=== PATIENT | female | born 1960 | race African-American/Black ===

== ENCOUNTER 2025-04-02 15:21 | Inpatient (IN) ==
[2025-04-02] MEDS: IPRATROPIUM/ALBUTEROL SULFATE 3 ML AMPUL.NEB INH ONE (15:30)
[2025-04-02] MEDS ORDERED: ACETAMINOPHEN 1000 MG/100 ML 1,000 MG/100 ML IV.SOLN IV ONE (15:42)
[2025-04-02] MEDS: ACETAMINOPHEN 1000 MG/100 ML 1,000 MG/100 ML IV.SOLN IV ONE (15:44)
[2025-04-02] MEDS ORDERED: 0.9 % SODIUM CHLORIDE 250 ML IV ONE (15:48)
[2025-04-02] MEDS ORDERED: AZITHROMYCIN 500 MG VIAL ONE (15:48)
[2025-04-02] MEDS: AZITHROMYCIN 500 MG 500 MG in 0.9 % SODIUM CHLORIDE 250 ML IV ONE (15:59)
[2025-04-02 16:00] LABS: Basophils #(Absolute) Auto 0.1 (0.0-0.1); Basophils%(Percent) Auto 0.3 (0.1-0.85); Eosinophils%(Percent) Auto 0.1 % (0.4-2.8); Granulocytes % - Auto 89.3 % (47.8-71.3); Granulocytes#(Absolute)- Auto 16.7 (2.3-6.0); Hematocrit 54.4 % (35.9-46.7); Mean Corpuscular Volume 94.2 fl (81.0-93.7); Monocytes #(Absolute)- Auto 1.6 (1.1-3.1); Monocytes %(Percent)- Auto 8.4 % (3.6-9.8); Platelet Count 187 K/uL (152-353); White Blood Count 18.7 K/uL (4.3-9.3)
[2025-04-02 16:05] LABS: Potassium 3.3 mmol/L (3.6-5.2)
[2025-04-02] MEDS: 0.9 % SODIUM CHLORIDE 1000 ML 1,000 ML IV ONE (16:54)
[2025-04-02 16:55] LABS: Urine Appearance CLEAR (CLEAR); Urine Blood NEGATIVE (NEG - TRACE); Urine Color YELLOW (STRAW/YELL.); Urine Urobilinogen Normal (NORMAL)
[2025-04-02 17:01] LABS: Amphetamine Screen Urine NEG. (NEGATIVE); Cannabinoid Screen Urine POS. (NEGATIVE); Cocaine Screen Urine POS. (NEGATIVE); Methadone Screen Urine NEG. (NEGATIVE); Opiate Screen Urine NEG. (NEGATIVE)
[2025-04-02] MEDS ORDERED: DOCUSATE SODIUM 100 MG CAPSULE PO PRN (17:23)
[2025-04-02] MEDS: METHYLPREDNISOLONE SOD SUCC/PF 40 MG/ML VIAL INJ SCH (19:34)
[2025-04-02] MEDS: 0.9 % SODIUM CHLORIDE 1000 ML 1,000 ML IV SCH (19:34)
[2025-04-02] MEDS: IPRATROPIUM/ALBUTEROL SULFATE 3 ML AMPUL.NEB INH SCH (20:27)
[2025-04-02] MEDS: BUDESONIDE INH SCH (22:46)
[2025-04-02] MEDS: FORMOTEROL FUMARATE INH SCH (22:46)
[2025-04-03 05:19] LABS: Granulocytes % - Auto 90.1 % (47.8-71.3); Granulocytes#(Absolute)- Auto 24.2 (2.3-6.0); Hematocrit 50.8 % (35.9-46.7); Mean Corpuscular Volume 95.6 fl (81.0-93.7); Monocytes %(Percent)- Auto 7.6 % (3.6-9.8); Platelet Count 175 K/uL (152-353)
[2025-04-03 05:54] LABS: Potassium 3.2 mmol/L (3.6-5.2)
[2025-04-03 06:00] LABS: White Blood Count 26.8 K/uL (4.3-9.3)
[2025-04-03] MEDS: POTASSIUM CHLORIDE IN WATER 10 MEQ/100 ML PIGGYBACK IV ONE (09:39)
[2025-04-03] MEDS: POTASSIUM CHLORIDE 20 MEQ TAB.ER.PRT PO ONE (09:39)
[2025-04-03] MEDS: MAGNESIUM OXIDE 400 MG TABLET PO ONE (09:39)
[2025-04-03] MEDS: PANTOPRAZOLE 20 MG PO SCH (09:40)
[2025-04-03] MEDS: POTASSIUM PHOS M BASIC D BASIC IV ONE (09:40)
[2025-04-03] MEDS: ENOXAPARIN SODIUM 40 MG/0.4 ML SYRINGE SUBQ SCH (09:40)
[2025-04-03] MEDS: SODIUM CHLORIDE 0.9% IV ONE (09:40)
--- NOTE | 2025-04-03 12:50 | History & Physical Report ---
H&P: HPI History of Present Illness Chief complaint: SOB Narrative: A 64-year-old female came into the ER last p.m. complaining of increasing shortness of breath over the last several days. States she was recently diagnosed with stage IV lung cancer and has a follow-up appointment with [facility] oncology in [address] Laird for final diagnosis if that biopsy and treatment options available for the patient. Patient is normally on 3 L nasal cannula at home secondary to long history of asthma and COPD. Patient denies any drug use upon hard questioning she admits to marijuana secondary to increased pain and troubles with her cancer and her friend told her it would help. Patient has a longstanding positive urine is from cocaine although she continues to deny this use. Patient has a long history of medical noncompliance and refuses stop smoking and even does not want stop at this time because she feels like it is too late at this point to stop. Patient denies any changes in her bowels no nausea no vomiting does have a very poor appetite and has subjective fevers although no has been measured. Review of Systems Status of ROS 10 or more systems reviewed and unremark able except as noted in history and below Constitutional Reports: fever, chills, change in weight (loosing weight), fatigue, malaise and night sweats; Denies: change in sleep pattern Eyes Denies: change in vision, blurry vision, blind spots or light sensitivity Ears, nose, mouth, and throat Reports: dry mouth; Denies: throat pain, neck pain, throat swelling, difficulty swallowing, hoarseness, mouth pain or swelling of lips/tongue Cardiovascular Reports: lightheadedness and shortness of breath with exertion; Denies: chest pain, palpitations, edema or swelling of feet/ankles Respiratory Reports: shortness of breath, cough, wheezing and change in phlegm color; Denies: stridor, pain on inspiration, coughing up blood or chest congestion Gastrointestinal Reports: nausea; Denies: abdominal pain, vomiting, coffee grounds in vomit, heartburn, diarrhea, constipation, bloating, belching, excessive passing of gas, difficulty swallowing, feeling full early, change in bowel habits or painful bowel movements Genitourinary Reports: urinary incontinence; Denies: painful urination, urinary frequency, urinary urgency, blood in urine, painful menstruation or vaginal bleeding Musculoskeletal Reports: joint pain; Denies: back pain, neck pain, extremity pain, extremity swelling or limited range of motion Integumentary/Breast Denies: rash, itching, redness, skin pain, skin tenderness, skin swelling, sores, new lesion or changing lesion Neurological Reports: numbness in extremities and difficulty communicating thoughts; Denies: headache, weakness in extremities, lack of coordination, dizziness, vertigo, confusion, behavioral changes or slurred speech Psychiatric Reports: anxiety, hopelessness, irritability and difficulty concentrating; Denies: mood swings, panic attacks, change in sleep pattern, loss of interest, paranoia, memory loss, visual hallucinations, auditory hallucinations, tactile hallucinations, suicidal ideation or homicidal ideation Endocrine Reports: fatigue; Denies: excessive urination, excessive thirst, cold intolerance, excessive sweating, flushing or heat intolerance Hematologic/Lymphatic Denies: easy bruising, easy bleeding or enlarged lymph nodes Allergic/Immunologic Reports: wheezing; Denies: hives, throat swelling, tongue swelling, facial swelling, itchy eyes or seasonal allergies [facility] Medical History (Updated 04/03/25 @ 13:07 by Sherine Mary DO) Acute on chronic respiratory failure with hypoxia and hypercapnia COPD exacerbation Stage 4 malignant neoplasm of lung On home oxygen therapy Lung cancer Asthma COPD (chronic obstructive pulmonary disease) Social History Smoking status: current every day smoker What tobacco products do you use: cigarettes Packs per day: 0.5 Non-prescribed substance use: crack/cocaine Non-prescribed substance use details: last smoked Sunday Problems where you live: no known problems Highest level of school completed/degree received: high school Little interest or pleasure in doing things: not at all Feeling down, depressed, or hopeless: not at all Feel stressed/tense/nervous/anxious/difficulty sleeping: only a little Gender Identity: female Meds Home Medications and Allergies Home Medications Medication Instructions Recorded Confirmed Type albuterol sulfate 2.5 mg/3 mL 2.5 mg (3 mL) inhalation Q4H COPD 05/18/24 04/03/25 Rx (0.083 %) solution for nebulization 30 days #150 mL albuterol sulfate 90 mcg/actuation 1 puff inhalation Q 4H PRN 05/18/24 04/03/25 Rx aerosol inhaler shortness of breath or wheez ing 30 days #2 grams benzonatate 100 mg capsule 200 mg (2 x 100 mg) PO Q8H COUGH 5 05/18/24 04/03/25 Rx Held on 04/03/25. 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 30 days 05/18/24 04/03/25 Rx mcg-4.5 mcg/actuation aerosol #1 g inhaler (Symbicort) pantoprazole 20 mg tablet,delayed 20 mg PO DAILY GERD 30 days #30 05/18/24 04/03/25 Rx release tabs Allergies Allergy/AdvReac Type Severity Reaction Status Date / Time Penicillins Allergy Intermediate Verified 04/02/25 16:12 CRAB Allergy Uncoded 04/02/25 16:12 OYSTERS Allergy Uncoded 04/02/25 16:12 SODA Allergy Uncoded 04/02/25 16:12 Exam Constitutional: abnormal general appearance (disheveled), (chronically ill) and (frail appearing), no apparent distress, abnormal body habitus (cachectic), (thin) and (underweight), no limitations and alert Vital Signs - 24 hr 04/02/25 15:21 04/02/25 15:48 04/02/25 16:00 Temperature 103.0 F H Pulse Rate 121 H 121 H Pulse Rate [Bilate ral] Respiratory Rate 27 H 25 H Blood Pressure 138/79 131/81 Blood Pressure [Ri ght Arm] Pulse Oximetry 88 L 91 L 96 Oxygen Delivery Me thod Nasal Cannula Nasal Cannula Oxygen Flow Rate 3 4 Fraction of Inspir ed Oxygen 04/02/25 16:30 04/02/25 17:00 04/02/25 17:19 Temperature Pulse Rate 119 H 114 H Pulse Rate [Bilate ral] Respiratory Rate 22 29 H Blood Pressure 110/71 110/77 Blood Pressure [Ri ght Arm] Pulse Oximetry 91 L 90 L Oxygen Delivery Me thod Nasal Cannula Nasal Cannula Nasal Cannula Oxygen Flow Rate 3 3 3 Fraction of Inspir ed Oxygen 04/02/25 17:30 04/02/25 17:44 04/02/25 18:00 Temperature 99.5 F Pulse Rate 112 H 111 H 110 H Pulse Rate [Bilate ral] Respiratory Rate 25 H 25 H 32 H Blood Pressure 126/73 115/73 128/81 Blood Pressure [Ri ght Arm] Pulse Oximetry 93 L 93 L 95 Oxygen Delivery Me thod Nasal Cannula Nasal Cannula Nasal Cannula Oxygen Flow Rate 3 3 3 Fraction of Inspir ed Oxygen 04/02/25 18:30 04/02/25 19:05 04/02/25 19:45 Temperature 99.3 F 98.5 F Pulse Rate 109 H 109 H Pulse Rate [Bilate ral] 107 H Respiratory Rate 21 20 21 Blood Pressure 124/72 126/80 Blood Pressure [Ri ght Arm] 119/73 Pulse Oximetry 88 L 91 L 92 L Oxygen Delivery Me thod Nasal Cannula Nasal Cannula Oxygen Flow Rate 3 Fraction of Inspir ed Oxygen 04/02/25 20:28 04/02/25 20:28 04/02/25 23:29 Temperature 98.5 F Pulse Rate Pulse Rate [Bilate ral] 86 Respiratory Rate 23 Blood Pressure Blood Pressure [Ri ght Arm] 110/72 Pulse Oximetry 94 L 95 92 L Oxygen Delivery Me thod Nasal Cannula Nasal Cannula Oxygen Flow Rate 3 Fraction of Inspir ed Oxygen 04/03/25 03:47 04/03/25 07:47 04/03/25 07:51 Temperature 97.8 F 98.3 F Pulse Rate Pulse Rate [Bilate ral] 99 H 85 Respiratory Rate 20 20 Blood Pressure Blood Pressure [Ri ght Arm] 134/89 124/71 Pulse Oximetry 94 L 90 L 92 L Oxygen Delivery Me thod Nasal Cannula Nasal Cannula Oxygen Flow Rate 3 Fraction of Inspir ed Oxygen 04/03/25 07:52 04/03/25 11:48 04/03/25 12:02 Temperature 98.1 F Pulse Rate Pulse Rate [Bilate ral] 98 H Respiratory Rate 19 Blood Pressure Blood Pressure [Ri ght Arm] 120/68 Pulse Oximetry 92 L 91 L 94 L Oxygen Delivery Me thod Nasal Cannula Nasal Cannula Oxygen Flow Rate 3 3 Fraction of Inspir ed Oxygen 32 HENMT: normocephalic, head/scalp atraumatic, hearing grossly abnormal, external ears normal, EACs normal, TMs abnormal, nasal mucous membranes normal, external nose normal, oral mucous membranes abnormal, oropharynx normal, dentition abnormal and gingiva normal Eyes: PERRL, EOMs intact bilaterally, conjunctivae normal, no scleral icterus, papilledema noted, normal visual blackburn by confrontation, alignment normal, periorbital findings normal and no nystagmus Neck/C-Spine: trachea midline, cervical spine nontender, abnormal cervical ROM noted, supple, no meningeal signs, thyroid normal and no carotid bruits Lymph: no lymphadenopathy noted and no lymphedema noted Chest: inspection of chest normal, palpation of chest normal, inspection of breast(s) abnormal and palpation of breast(s) abnormal Respiratory: breath sounds unequal (rhonchi noted bilaterally in all blackburn), abnormal respiratory effort (labored), auscultation abnormal (bronchial breath sounds), wheezing noted (scattered wheezes), no rales, retractions noted and no use of accessory muscles Cardiovascular: normal heart rate noted, regular rhythm noted, no gallop, no rub, no murmur, no JVD, no clicks, peripheral pulses 2+ throughout, no bruits noted and no additional abnormal heart sounds Gastrointestinal: abdomen normal to inspection, abdomen soft to palpation, nontender to palpation, nontender to percussion, nondistended, normoactive bowel sounds, hepatosplenomegaly noted, no masses, no pulsatile mass, no ascites and no hernia Genitourinary: no CVA tenderness and bladder normal to palpation Back/Pelvis: spine normal to inspection, no thoracic spine tenderness, no lumbar spine tenderness, thoracic spine ROM normal, lumbar spine ROM normal, no paraspinal muscle tenderness noted and straight leg raise negative bilaterally Extremities: normal to palpation, no tenderness, full ROM, no joint enlargement and deformity noted 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, no movement abnormality noted, no focal motor deficit noted, sensory deficit noted, deep tendon reflexes 2+ bilaterally, gait abnormality noted, speech normal, coordination normal, no pronator drift noted, no fasciculations noted and GCS normal Psychiatry: Mental Status Exam documented within this Exam's Psych section mental status grossly normal, oriented x3, thought process normal, cooperative, affect normal, psychomotor activity normal and memory normal Feel stressed/tense/nervous/anxious/difficulty sleeping: very much Life stressors: other Life stressor details: health Skin: skin color abnormal Reports (pale), no rash, no lesions, no ecchymosis noted, no wounds, no lacerations, skin turgor abnormal, no jaundice, no petechiae, no mottling, nails abnormality noted and no alopecia Assessment and Plan Assessment and Plan (1) Pneumonia of both lower lobes: Qualifiers: Pneumonia type: due to unspecified organism Qualified Code(s): J18.9 - Pneumonia, unspecified organism Code(s): J18.9 - Pneumonia, unspecified organism (2) COPD exacerbation: Code(s): J44.1 - Chronic obstructive pulmonary disease with (acute) exacerbation (3) Stage 4 malignant neoplasm of lung: Qualifiers: Laterality: unspecified laterality Qualified Code(s): C34.90 - Malignant neoplasm of unspecified part of unspecified bronchus or lung Code(s): C34.90 - Malignant neoplasm of unspecified part of unspecified bronchus or lung (4) Cocaine use: Code(s): F14.90 - Cocaine use, unspecified, uncomplicated (5) Tobacco dependence with current use: Code(s): F17.200 - Nicotine dependence, unspecified, uncomplicated (6) GERD without esophagitis: Code(s): K21.9 - Gastro-esophageal reflux disease without esophagitis (7) Acute on chronic respiratory failure with hypoxia and hypercapnia: Code(s): J96.21 - Acute and chronic respiratory failure with hypoxia; J96.22 - Acute and chronic respiratory failure with hypercapnia Plan Replace potassium orally and IV Cardiac monitoring continuous Continuous oximetry EKG in the a.m. Repeat ABG as needed Zithromax 500 mg IV daily started in the ER Rocephin 1 g IV daily started in the ER Solu-Medrol dose given in the ER CBC jumped up to 26 thousand so we will add Zosyn 3.375 mg IV every 6 hours Phosphorus 3.4 mmol startedMg ox patient milligrams. Given Will give albumin IV x 2 DuoNeb every 6 hours Acapella per protocol Pulmicort every 12 hours Will try an oral form using centimeter at this time to see how the WBCs respond and patient's breathing improves with current methods Results Labs Labs: CBC 04/02/25 04/03/25 Range/Units 15:45 05:10 WBC 18.7 H 26.8 H* D (4.3-9.3) K/uL RBC 5.8 H 5.3 (4.00-5.50) M/uL Hgb 17.3 H 16.1 H (12.5-15.8) gm/dL Hct 54.4 H 50.8 H (35.9-46.7) % Plt Count 187 175 (152-353) K/uL Gran % 89.3 H 90.1 H (47.8-71.3) % Lymph % (Auto) 1.9 L 2.3 L (20.0-43.0) % [place] % (Auto) 8.4 7.6 (3.6-9.8) % Eos % (Auto) 0.1 L 0.0 L (0.4-2.8) % Baso % (Auto) 0.3 0.0 L (0.1-0.85) Lymph # (Auto) 0.3 L 0.6 L (1.1-3.1) [place] # (Auto) 1.6 2.0 (1.1-3.1) Eos # (Auto) 0.0 0.0 (0.0-0.2) Baso # (Auto) 0.1 0.0 (0.0-0.1) Absolute Gran (auto) 16.7 H 24.2 H (2.3-6.0) CMP 04/02/25 04/03/25 15:45 05:10 Sodium 141 141 Potassium 3.3 L 3.2 L Chloride 100.0 105.0 Carbon Dioxide 39 H 36 H BUN 12 14 Creatinine 0.7 0.6 Glucose 104 147 H Calcium 9.0 8.7 Liver Function 04/02/25 04/03/25 Range/Units 15:45 05:10 Total Bilirubin 0.67 0.39 (0.0-1.0) mg/dL AST 19 19 (15-37) U/L ALT 22 L 15 L (30-65) U/L Alkaline Phosphatase 75 57 (50-136) U/L Albumin 3.0 L 2.1 L (3.4-5.0) g/dL Urine 04/02/25 15:40 Urine Color Yellow Urine Appearance Clear Ur Specific [place] 1.010 Urine Protein Negative Urine Glucose (UA) Normal ABG ABG results: 7.31/82/30/126/41.3/ awaiting repeat now Attestation: I have reviewed the pertinent ABG results. Pulse Oximetry Attestation: I have reviewed the pertinent pulse oximetry results. ECG Attestation: I have reviewed the pertinent ECG results. Prior ECG tracings: available for review Imaging Imaging ordered: Chest x-ray Radiologist's impression: XR CHEST 1V HISTORY: SOB/FeverSOB/Fever; CV COMPARISON: January 08 TECHNIQUE: Chest radiograph AP single-view FINDINGS: Patchy infiltrates and coarsened interstitial lung markings are demonstrated within the bilateral mid to lower lung zones in keeping with pneumonia. This is superimposed on chronic pulmonary hyperinflation. The heart size is normal. No conspicuous pleural fluid collections identified. There is no pneumothorax or free air beneath the diaphragm. IMPRESSION: Multifocal bilateral pulmonary opacities/infiltrates in keeping with pneumonia. This may be associated with nonspecific viral and atypical organisms Radiographic features of emphysematous COPD are superimposed upon the above findings.
[2025-04-03] MEDS: MAGNESIUM OXIDE 400 MG TABLET ONE (12:57)
[2025-04-03] MEDS: POTASSIUM CHLORIDE 20 MEQ TAB.ER.PRT ONE (12:57)
[2025-04-03] MEDS: 0.9 % SODIUM CHLORIDE 1000 ML 1,000 ML IV SCH (14:02)
[2025-04-03] MEDS: ALBUMIN HUMAN 25% 100 ML IV SCH (14:03)
[2025-04-03] MEDS: PIPERACILLIN/TAZOBACTAM 3.375 3.375 GM in 0.9 % SODIUM CHLORIDE MB+ 100 ML IV SCH (14:03)
[2025-04-03] MEDS: PANTOPRAZOLE SODIUM 40 MG TABLET.DR PO SCH (14:03)
[2025-04-03 14:31] LABS: PCO2 ABG 59 mmHg (35-45)
[2025-04-03 14:32] LABS: Base Excess ABG 7.1 mmo1/L (-2-2); Oxygen Saturation ABG 38 % (92-100); PO2 ABG 23 mmHg (60-100)
[2025-04-03 14:33] LABS: pH ABG 7.37 (7.35-7.45)
[2025-04-03] MEDS: BUDESONIDE 0.5 MG/2 ML AMPUL.NEB INH SCH (14:51)
[2025-04-03] MEDS: AZITHROMYCIN 500 MG 500 MG in 0.9 % SODIUM CHLORIDE 250 ML IV SCH (16:01)
[2025-04-03] MEDS: ONDANSETRON HCL/PF 4 MG/2 ML VIAL INJ PRN (19:34)
[2025-04-03] MEDS: ACETAMINOPHEN 325 MG TABLET PO PRN (19:35)
[2025-04-04 05:08] LABS: Basophils%(Percent) Auto 0.1 (0.1-0.85); Eosinophils%(Percent) Auto 0.1 % (0.4-2.8); Granulocytes % - Auto 85.8 % (47.8-71.3); Granulocytes#(Absolute)- Auto 14.5 (2.3-6.0); Hematocrit 47.1 % (35.9-46.7); Mean Corpuscular Volume 95.5 fl (81.0-93.7); Monocytes #(Absolute)- Auto 1.4 (1.1-3.1); Monocytes %(Percent)- Auto 8.5 % (3.6-9.8); Platelet Count 158 K/uL (152-353)
[2025-04-04 05:29] LABS: Potassium 3.5 mmol/L (3.6-5.2)
--- NOTE | 2025-04-04 17:11 | Progress Note ---
Progress Note: Subjective Subjective Interval history: Patient still very tight and short of breath has had 2 loose stools today. Denies any abdominal pain and no nausea nor vomiting and otherwise she has tolerated the antibioitcs and steroids. no fevers Exam Constitutional: abnormal general appearance (disheveled), (chronically ill) and (frail appearing), distress noted (moderate) and (respiratory), abnormal body habitus (cachectic), (thin) and (underweight), no limitations and alert Vital Signs - 24 hr 04/03/25 19:27 04/03/25 19:44 04/03/25 19:51 Temperature 98.0 F Pulse Rate [Bilate ral] 98 H 98 H Respiratory Rate 20 Blood Pressure [Ri ght Arm] 107/68 Pulse Oximetry 93 L 93 L Oxygen Delivery Me thod Nasal Cannula Oxygen Flow Rate 3 Fraction of Inspir ed Oxygen 04/03/25 19:51 04/03/25 23:25 04/04/25 04:00 Temperature 97.9 F 98.1 F Pulse Rate [Bilate ral] 96 H 96 H Respiratory Rate 18 18 Blood Pressure [Ri ght Arm] 103/66 107/68 Pulse Oximetry 93 L 94 L 96 Oxygen Delivery Me thod Nasal Cannula Nasal Cannula Nasal Cannula Oxygen Flow Rate 3 3 3 Fraction of Inspir ed Oxygen 32 04/04/25 07:39 04/04/25 08:17 04/04/25 11:32 Temperature 97.9 F Pulse Rate [Bilate ral] 85 Respiratory Rate 19 Blood Pressure [Ri ght Arm] 106/48 Pulse Oximetry 90 L 90 L 94 L Oxygen Delivery Me thod Nasal Cannula Oxygen Flow Rate 3 Fraction of Inspir ed Oxygen 04/04/25 12:00 04/04/25 15:26 04/04/25 16:00 Temperature 97.8 F 97.8 F Pulse Rate [Bilate ral] 94 H 103 H Respiratory Rate 20 19 Blood Pressure [Ri ght Arm] 113/73 103/66 Pulse Oximetry 91 L 92 L 90 L Oxygen Delivery Me thod Nasal Cannula Nasal Cannula Oxygen Flow Rate 3 3 Fraction of Inspir ed Oxygen HENMT: normocephalic, head/scalp atraumatic, hearing grossly abnormal, external ears normal, EACs normal, TMs abnormal, nasal mucous membranes normal, external nose normal, oral mucous membranes abnormal, oropharynx normal, dentition abnormal and gingiva normal Eyes: PERRL, EOMs intact bilaterally, conjunctivae normal, no scleral icterus, papilledema noted, normal visual blackburn by confrontation, alignment normal, periorbital findings normal and no nystagmus Neck/C-Spine: trachea midline, cervical spine nontender, abnormal cervical ROM noted, supple, no meningeal signs, thyroid normal and no carotid bruits Lymph: no lymphadenopathy noted and no lymphedema noted Chest: inspection of chest normal, palpation of chest normal, inspection of breast(s) abnormal and palpation of breast(s) abnormal Respiratory: breath sounds equal bilaterally (rhonchi noted bilaterally in all blackburn), normal respiratory effort, clear to auscultation bilaterally, no wheezes, no rales, no retractions and no use of accessory muscles Cardiovascular: normal heart rate noted, regular rhythm noted, no gallop, no rub, no murmur, no JVD, no clicks, peripheral pulses 2+ throughout, no bruits noted and no additional abnormal heart sounds Gastrointestinal: abdomen normal to inspection, abdomen soft to palpation, nontender to palpation, nontender to percussion, nondistended, normoactive bowel sounds, hepatosplenomegaly noted, no masses, no pulsatile mass, no ascites and no hernia Genitourinary: no CVA tenderness and bladder normal to palpation Back/Pelvis: spine normal to inspection, no thoracic spine tenderness, no lumbar spine tenderness, thoracic spine ROM normal, lumbar spine ROM normal, no paraspinal muscle tenderness noted and straight leg raise negative bilaterally Extremities: normal to palpation, no tenderness, full ROM, no joint enlargement and deformity noted 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, no movement abnormality noted, no focal motor deficit noted, sensory deficit noted, deep tendon reflexes 2+ bilaterally, gait abnormality noted, speech normal, coordination normal, no pronator drift noted, no fasciculations noted and GCS normal Psychiatry: Mental Status Exam documented within this Exam's Psych section mental status grossly normal, oriented x3, thought process normal, cooperative, affect normal, psychomotor activity normal and memory normal Feel stressed/tense/nervous/anxious/difficulty sleeping: very much Life stressors: other Life stressor details: health Skin: skin color abnormal Reports (pale), no rash, no lesions, no ecchymosis noted, no wounds, no lacerations, skin turgor abnormal, no jaundice, no petechiae, no mottling, nails abnormality noted and no alopecia Progress Note: Objective Labs Labs: CBC 04/04/25 Range/Units 05:00 WBC 17.0 H D (4.3-9.3) K/uL RBC 4.9 (4.00-5.50) M/uL Hgb 14.8 (12.5-15.8) gm/dL Hct 47.1 H (35.9-46.7) % Plt Count 158 (152-353) K/uL Gran % 85.8 H (47.8-71.3) % Lymph % (Auto) 5.5 L (20.0-43.0) % [place] % (Auto) 8.5 (3.6-9.8) % Eos % (Auto) 0.1 L (0.4-2.8) % Baso % (Auto) 0.1 (0.1-0.85) Lymph # (Auto) 0.9 L (1.1-3.1) [place] # (Auto) 1.4 (1.1-3.1) Eos # (Auto) 0.0 (0.0-0.2) Baso # (Auto) 0.0 (0.0-0.1) Absolute Gran (auto) 14.5 H (2.3-6.0) CMP 04/04/25 05:00 Sodium 144 Potassium 3.5 L Chloride 109.0 H Carbon Dioxide 35 H BUN 14 Creatinine 0.6 Glucose 93 Calcium 8.7 Liver Function 04/04/25 Range/Units 05:00 Total Bilirubin 0.41 (0.0-1.0) mg/dL AST 12 L (15-37) U/L ALT 16 L (30-65) U/L Alkaline Phosphatase 50 (50-136) U/L Albumin 2.8 L (3.4-5.0) g/dL Urine 04/02/25 15:40 Urine Color Yellow Urine Appearance Clear Ur Specific [place] 1.010 Urine Protein Negative Urine Glucose (UA) Normal Progress Note: A&P Assessment and Plan (1) Pneumonia of both lower lobes: Qualifiers: Pneumonia type: due to unspecified organism Qualified Code(s): J18.9 - Pneumonia, unspecified organism (2) COPD exacerbation: (3) Stage 4 malignant neoplasm of lung: Qualifiers: Laterality: unspecified laterality Qualified Code(s): C34.90 - Malignant neoplasm of unspecified part of unspecified bronchus or lung (4) Cocaine use: (5) Tobacco dependence with current use: (6) GERD without esophagitis: (7) Acute on chronic respiratory failure with hypoxia and hypercapnia: Plan Replace potassium orally and IV Cardiac monitoring continuous Continuous oximetry EKG in the a.m. Repeat ABG as needed Zithromax 500 mg IV daily started in the ER Rocephin 1 g IV daily started in the ER Solu-Medrol dose given in the ER CBC jumped up to 26 thousand so we will add Zosyn 3.375 mg IV every 6 hours Phosphorus 3.4 mmol startedMg ox patient milligrams. Given Will give albumin IV x 2 DuoNeb every 6 hours Acapella per protocol Pulmicort every 12 hours Will try an oral form using centimeter at this time to see how the WBCs respond and patient's breathing improves with current methods Fall Risk Details Vee Fall Scale Risk Level: Moderate Fall Risk Current Medications: Current Medications Acetaminophen (Acetaminophen 325 Mg Tablet) 650 mg PO Q6H PRN PRN Reason: Fever OF 100.5 OR GREATER Last Admin: 04/03/25 19:35 Dose: 650 mg Albuterol Sulfate (Ipratropium/Albuterol Sulfate 3 Ml Ampul.Neb) 3 ml INH RQID [facility] Last Admin: 04/04/25 15:25 Dose: 3 ml Budesonide (Budesonide 0.5 Mg/2 Ml Ampul.Neb) 0.5 mg INH RBID [facility] Last Admin: 04/04/25 08:15 Dose: 0.5 mg Docusate Sodium (Docusate Sodium 100 Mg Capsule) 100 mg PO DAILY PRN PRN Reason: Constipation Enoxaparin Sodium (Enoxaparin Sodium 40 Mg/0.4 Ml Syringe) 40 mg SUBQ DAILY [facility] Last Admin: 04/04/25 08:20 Dose: 40 mg Sodium Chloride (Sodium Chloride) 1,000 mls @ 75 mls/hr IV CONT [facility] Last Infusion: 04/04/25 08:40 Dose: Infused Azithromycin 500 mg/ Sodium (Chloride) 250 mls @ 250 mls/hr IV Q24H [facility] Stop: 04/05/25 16:59 Last Admin: 04/04/25 16:09 Dose: 250 mls/hr Piperacillin Sod/Tazobactam (Sod 3.375 gm/ Sodium Chloride) 100 mls @ 200 mls/hr IV Q6H [facility] Last Infusion: 04/04/25 14:54 Dose: Infused Sodium Chloride (Sodium Chloride) 1,000 mls @ 100 mls/hr IV CONT [facility] Last Admin: 04/04/25 08:20 Dose: 100 mls/hr Ondansetron HCl (Ondansetron Hcl/Pf 4 Mg/2 Ml Vial) 4 mg INJ Q6H PRN PRN Reason: Nausea And Vomiting Last Admin: 04/03/25 19:34 Dose: 4 mg Pantoprazole Sodium (Pantoprazole Sodium 40 Mg Tablet.Dr) 40 mg PO DAILY [facility] Last Admin: 04/04/25 08:20 Dose: 40 mg Time Spent With Patient Time: Total time spent is greater than 50% in coordination of care (as documented) at patient's floor/unit and/or counseling patient:
[2025-04-04] MEDS: MAGNESIUM OXIDE 400 MG TABLET PO ONE (18:03)
[2025-04-04] MEDS: POTASSIUM CHLORIDE 20 MEQ TAB.ER.PRT PO ONE (18:03)
--- NOTE | 2025-04-05 05:55 | Progress Note ---
Progress Note: Subjective Subjective Interval history: breathing improved and still wearing oxygen and working on weaning the oxygen. Diarrhea persisting per the patient and having issues with brething to make it to the toilet on time. Exam Constitutional: abnormal general appearance (disheveled), (chronically ill) and (frail appearing), no apparent distress, abnormal body habitus (cachectic), (thin) and (underweight), limitations noted (physical limitations) and alert Vital Signs - 24 hr 04/04/25 07:39 04/04/25 08:17 04/04/25 11:32 Temperature 97.9 F Pulse Rate [Bilate ral] 85 Respiratory Rate 19 Blood Pressure [Ri ght Arm] 106/48 Pulse Oximetry 90 L 90 L 94 L Oxygen Delivery Me thod Nasal Cannula Oxygen Flow Rate 3 Fraction of Inspir ed Oxygen 04/04/25 12:00 04/04/25 15:26 04/04/25 16:00 Temperature 97.8 F 97.8 F Pulse Rate [Bilate ral] 94 H 103 H Respiratory Rate 20 19 Blood Pressure [Ri ght Arm] 113/73 103/66 Pulse Oximetry 91 L 92 L 90 L Oxygen Delivery Me thod Nasal Cannula Nasal Cannula Oxygen Flow Rate 3 3 Fraction of Inspir ed Oxygen 04/04/25 19:29 04/04/25 19:34 04/04/25 20:30 Temperature 98.5 F Pulse Rate [Bilate ral] 107 H 107 H Respiratory Rate 19 19 Blood Pressure [Ri ght Arm] 145/87 Pulse Oximetry 95 100 Oxygen Delivery Me thod Room Air Nasal Can nula Oxygen Flow Rate Fraction of Inspir ed Oxygen 04/04/25 20:30 04/04/25 23:49 04/05/25 03:48 Temperature 98.5 F 98.6 F Pulse Rate [Bilate ral] 100 H 96 H Respiratory Rate 19 19 Blood Pressure [Ri ght Arm] 131/82 142/96 Pulse Oximetry 100 90 L 93 L Oxygen Delivery Me thod Nasal Cannula Room Air Nasal Can nula Nasal Cannula Oxygen Flow Rate 3 Fraction of Inspir ed Oxygen 32 HENMT: normocephalic, head/scalp atraumatic, hearing grossly abnormal, external ears normal, EACs normal, TMs abnormal, nasal mucous membranes normal, external nose normal, oral mucous membranes normal, oropharynx normal, dentition abnormal and gingiva normal Eyes: PERRL, EOMs intact bilaterally, conjunctivae normal, no scleral icterus, papilledema noted, normal visual blackburn by confrontation, alignment normal, periorbital findings normal and no nystagmus Neck/C-Spine: trachea midline, cervical spine nontender, abnormal cervical ROM noted, supple, no meningeal signs, thyroid normal and no carotid bruits Lymph: no lymphadenopathy noted and no lymphedema noted Chest: inspection of chest normal, palpation of chest normal, inspection of breast(s) abnormal and palpation of breast(s) abnormal Respiratory: breath sounds unequal (rhonchi noted bilaterally in all blackburn), abnormal respiratory effort (labored), auscultation abnormal (bronchial breath sounds), wheezing noted (scattered wheezes), no rales, no retractions and no use of accessory muscles Cardiovascular: heart rate abnormal, regular rhythm noted, no gallop, no rub, no murmur, no JVD, no clicks, peripheral pulses 2+ throughout, no bruits noted and no additional abnormal heart sounds Gastrointestinal: abdomen normal to inspection, abdomen soft to palpation, nontender to palpation, nontender to percussion, nondistended, abnormal bowel sounds noted, hepatosplenomegaly noted, no masses, no pulsatile mass, no ascites and no hernia Genitourinary: no CVA tenderness and bladder normal to palpation Back/Pelvis: spine abnormal to inspection, no thoracic spine tenderness, no lumbar spine tenderness, thoracic spine ROM normal, lumbar spine ROM normal, no paraspinal muscle tenderness noted and straight leg raise negative bilaterally Extremities: normal to inspection, normal to palpation, no tenderness, full ROM, no joint enlargement and deformity noted 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, no movement abnormality noted, no focal motor deficit noted, sensory deficit noted, deep tendon reflexes 2+ bilaterally, gait abnormality noted, speech normal, coordination normal, no pronator drift noted, no fasciculations noted and GCS normal Psychiatry: Mental Status Exam documented within this Exam's Psych section mental status grossly normal, oriented x3, thought process normal, cooperative, affect normal, psychomotor activity normal and memory normal Feel stressed/tense/nervous/anxious/difficulty sleeping: very much Life stressors: other Life stressor details: health Skin: skin color normal, no rash, no lesions, no ecchymosis noted, no wounds, no lacerations, skin turgor normal, no jaundice, no petechiae, no mottling, fauzia ls abnormality noted and no alopecia Progress Note: Objective Labs Labs: Urine 04/02/25 15:40 Urine Color Yellow Urine Appearance Clear Ur Specific [place] 1.010 Urine Protein Negative Urine Glucose (UA) Normal Pulse Oximetry Attestation: I have reviewed the pertinent pulse oximetry results. Progress Note: A&P Assessment and Plan (1) Diarrhea: Qualifiers: Diarrhea type: presumed infectious Qualified Code(s): R19.7 - Diarrhea, unspecified (2) Pneumonia of both lower lobes: Qualifiers: Pneumonia type: due to unspecified organism Qualified Code(s): J18.9 - Pneumonia, unspecified organism (3) COPD exacerbation: (4) Stage 4 malignant neoplasm of lung: Qualifiers: Laterality: unspecified laterality Qualified Code(s): C34.90 - Malignant neoplasm of unspecified part of unspecified bronchus or lung (5) Cocaine use: (6) Tobacco dependence with current use: (7) GERD without esophagitis: (8) Acute on chronic respiratory failure with hypoxia and hypercapnia: Plan Replace potassium orally and IV Cardiac monitoring continuous Continuous oximetry EKG in the a.m. Repeat ABG as needed Zithromax 500 mg IV daily started in the ER Rocephin 1 g IV daily started in the ER Solu-Medrol dose given in the ER CBC jumped up to 26 thousand Zosyn 3.375 mg IV every 6 hours DuoNeb every 6 hours Acapella per protocol Pulmicort every 12 hours Will try an oral form using centimeter at this time to see how the WBCs respond and patient's breathing improves with current methods stool samples for WBC, C. Diff, Ova & Parasites wean oxygen Patient declines rehab neither outpatient nor inpatient states she does not have an addiction to cocaine and will not use any and was not aware of doing any drugs. Fall Risk Details Vee Fall Scale Risk Level: Moderate Fall Risk Current Medications: Current Medications Acetaminophen (Acetaminophen 325 Mg Tablet) 650 mg PO Q6H PRN PRN Reason: Fever OF 100.5 OR GREATER Last Admin: 04/03/25 19:35 Dose: 650 mg Albuterol Sulfate (Ipratropium/Albuterol Sulfate 3 Ml Ampul.Neb) 3 ml INH RQID [facility] Last Admin: 04/04/25 20:31 Dose: 3 ml Budesonide (Budesonide 0.5 Mg/2 Ml Ampul.Neb) 0.5 mg INH RBID [facility] [place] Last Admin: 04/04/25 20:30 Dose: 0.5 mg Docusate Sodium (Docusate Sodium 100 Mg Capsule) 100 mg PO DAILY PRN PRN Reason: Constipation Enoxaparin Sodium (Enoxaparin Sodium 40 Mg/0.4 Ml Syringe) 40 mg SUBQ DAILY [facility] [place] Last Admin: 04/04/25 08:20 Dose: 40 mg Azithromycin 500 mg/ Sodium (Chloride) 250 mls @ 250 mls/hr IV Q24H [facility] [place] Stop: 04/05/25 16:59 Last Infusion: 04/04/25 17:30 Dose: Infused Piperacillin Sod/Tazobactam (Sod 3.375 gm/ Sodium Chloride) 100 mls @ 200 mls/hr IV Q6H [facility] [place] Last Infusion: 04/05/25 01:06 Dose: Infused Ondansetron HCl (Ondansetron Hcl/Pf 4 Mg/2 Ml Vial) 4 mg INJ Q6H PRN PRN Reason: Nausea And Vomiting Last Admin: 04/03/25 19:34 Dose: 4 mg Pantoprazole Sodium (Pantoprazole Sodium 40 Mg Tablet.Dr) 40 mg PO DAILY [facility] [place] Last Admin: 04/04/25 08:20 Dose: 40 mg Time Spent With Patient Time: Total time spent is greater than 50% in coordination of care (as documented) at patient's floor/unit and/or counseling patient:
[2025-04-05 05:57] LABS: Basophils%(Percent) Auto 0.4 (0.1-0.85); Eosinophils#(Absolute)Auto 0.1 (0.0-0.2); Eosinophils%(Percent) Auto 0.7 % (0.4-2.8); Granulocytes#(Absolute)- Auto 8.4 (2.3-6.0); Hematocrit 47.9 % (35.9-46.7); Mean Corpuscular Volume 96.6 fl (81.0-93.7); Monocytes #(Absolute)- Auto 1.1 (1.1-3.1); Monocytes %(Percent)- Auto 9.9 % (3.6-9.8); Platelet Count 167 K/uL (152-353); White Blood Count 10.6 K/uL (4.3-9.3)
[2025-04-05 06:48] LABS: Potassium 4.6 mmol/L (3.6-5.2)
[2025-04-06 05:41] LABS: Basophils%(Percent) Auto 0.6 (0.1-0.85); Eosinophils#(Absolute)Auto 0.1 (0.0-0.2); Eosinophils%(Percent) Auto 2.1 % (0.4-2.8); Granulocytes % - Auto 69.2 % (47.8-71.3); Granulocytes#(Absolute)- Auto 4.6 (2.3-6.0); Hematocrit 47.2 % (35.9-46.7); Mean Corpuscular Volume 95.8 fl (81.0-93.7); Monocytes %(Percent)- Auto 14.6 % (3.6-9.8); Platelet Count 165 K/uL (152-353); White Blood Count 6.7 K/uL (4.3-9.3)
[2025-04-06 05:53] LABS: Potassium 4.4 mmol/L (3.6-5.2)
--- NOTE | 2025-04-06 11:13 | Progress Note ---
Progress Note: Subjective Subjective Interval history: Ms. Reza is doing well this morning states that SOB is subsiding. She has been experiencing diarrhea that started after admit. Will check stool studies and abdomen. Otherwise labs and vitals stable. Sputum culture has resulted showing serratia marcescens sensitive to flourquinolones so we will change to levaquin and stop zosyn. Exam Constitutional: abnormal general appearance (disheveled), (chronically ill) and (frail appearing), no apparent distress, abnormal body habitus (cachectic), (thin) and (underweight), no limitations and alert Vital Signs - 24 hr 04/05/25 11:50 04/05/25 12:00 04/05/25 15:51 Temperature 98.4 F Pulse Rate [Bilate ral] 89 Respiratory Rate 21 Blood Pressure [Ri ght Arm] 141/85 Pulse Oximetry 95 90 L 98 Oxygen Delivery Me thod Nasal Cannula Oxygen Flow Rate 3 04/05/25 16:00 04/05/25 20:00 04/05/25 20:40 Temperature 98.8 F 99.1 F Pulse Rate [Bilate ral] 106 H 102 H Respiratory Rate 22 19 Blood Pressure [Ri ght Arm] 120/86 159/99 Pulse Oximetry 95 90 L 90 L Oxygen Delivery Me thod Nasal Cannula Oxygen Flow Rate 3 04/05/25 20:40 04/05/25 23:41 04/06/25 04:00 Temperature 98.9 F Pulse Rate [Bilate ral] 91 H 98 H Respiratory Rate 18 18 Blood Pressure [Ri ght Arm] 141/87 141/96 Pulse Oximetry 90 L 98 91 L Oxygen Delivery Me thod Nasal Cannula Nasal Cannula Nasal Cannula Oxygen Flow Rate 3 04/06/25 07:27 04/06/25 07:46 Temperature 98.3 F Pulse Rate [Bilate ral] 88 Respiratory Rate 21 Blood Pressure [Ri ght Arm] 137/81 Pulse Oximetry 95 96 Oxygen Delivery Me thod Nasal Cannula Oxygen Flow Rate 4 HENMT: normocephalic, head/scalp atraumatic, hearing grossly abnormal, external ears normal, EACs normal, TMs abnormal, nasal mucous membranes normal, external nose normal, oral mucous membranes abnormal, oropharynx normal, dentition abnormal and gingiva normal Eyes: PERRL, EOMs intact bilaterally, conjunctivae normal, no scleral icterus, papilledema noted, normal visual blackburn by confrontation, alignment normal, periorbital findings normal and no nystagmus Neck/C-Spine: trachea midline, cervical spine nontender, abnormal cervical ROM noted, supple, no meningeal signs, thyroid normal and no carotid bruits Lymph: no lymphadenopathy noted and no lymphedema noted Chest: inspection of chest normal, palpation of chest normal, inspection of breast(s) abnormal and palpation of breast(s) abnormal Respiratory: breath sounds equal bilaterally (rhonchi noted bilaterally in all blackburn), normal respiratory effort, clear to auscultation bilaterally, no wheezes, no rales, no retractions and no use of accessory muscles Cardiovascular: normal heart rate noted, regular rhythm noted, no gallop, no rub, no murmur, no JVD, no clicks, peripheral pulses 2+ throughout, no bruits noted and no additional abnormal heart sounds Gastrointestinal: abdomen normal to inspection, abdomen soft to palpation, nontender to palpation, nontender to percussion, nondistended, normoactive bowel sounds, hepatosplenomegaly noted, no masses, no pulsatile mass, no ascites and no hernia Genitourinary: no CVA tenderness and bladder normal to palpation Back/Pelvis: spine normal to inspection, no thoracic spine tenderness, no lumbar spine tenderness, thoracic spine ROM normal, lumbar spine ROM normal, no paraspinal muscle tenderness noted and straight leg raise negative bilaterally Extremities: normal to palpation, no tenderness, full ROM, no joint enlargement and deformity noted 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, no movement abnormality noted, no focal motor deficit noted, sensory deficit noted, deep tendon reflexes 2+ bilaterally, gait abnormality noted, speech normal, coordination normal, no pronator drift noted, no fasciculations noted and GCS normal Psychiatry: Mental Status Exam documented within this Exam's Psych section mental status grossly normal, oriented x3, thought process normal, cooperative, affect normal, psychomotor activity normal and memory normal Feel stressed/tense/nervous/anxious/difficulty sleeping: very much Life stressors: other Life stressor details: health Skin: skin color abnormal Reports (pale), no rash, no lesions, no ecchymosis noted, no wounds, no lacerations, skin turgor abnormal, no jaundice, no petechiae, no mottling, nails abnormality noted and no alopecia Progress Note: Objective Labs Labs: CBC 04/06/25 Range/Units 05:25 WBC 6.7 (4.3-9.3) K/uL RBC 4.9 (4.00-5.50) M/uL Hgb 15.0 (12.5-15.8) gm/dL Hct 47.2 H (35.9-46.7) % Plt Count 165 (152-353) K/uL Gran % 69.2 (47.8-71.3) % Lymph % (Auto) 13.5 L (20.0-43.0) % [place] % (Auto) 14.6 H (3.6-9.8) % Eos % (Auto) 2.1 (0.4-2.8) % Baso % (Auto) 0.6 (0.1-0.85) Lymph # (Auto) 0.9 L (1.1-3.1) [place] # (Auto) 1.0 L (1.1-3.1) Eos # (Auto) 0.1 (0.0-0.2) Baso # (Auto) 0.0 (0.0-0.1) Absolute Gran (auto) 4.6 (2.3-6.0) CMP 04/06/25 05:25 Sodium 141 Potassium 4.4 Chloride 107.0 Carbon Dioxide 37 H BUN 11 Creatinine 0.6 Glucose 89 Calcium 8.5 Liver Function 04/06/25 Range/Units 05:25 Total Bilirubin 0.35 (0.0-1.0) mg/dL AST 13 L (15-37) U/L ALT 16 L (30-65) U/L Alkaline Phosphatase 57 (50-136) U/L Albumin 2.6 L (3.4-5.0) g/dL Urine 04/02/25 15:40 Urine Color Yellow Urine Appearance Clear Ur Specific [place] 1.010 Urine Protein Negative Urine Glucose (UA) Normal Imaging Chest x-ray: Radiologist's impression: Patient: Leslie Reza MR#: [id number] : Acct:[id number] Age/Sex: 64 / F ADM Date: 04/02/25 Loc: ED Attending Dr: Ordering Physician: Thelma Horowitz Date of Service: 04/02/25 Procedure(s): XR chest 1V Accession Number(s): [id number] cc: Thelma Horowitz~ EXAM: XR CHEST 1V HISTORY: SOB/FeverSOB/Fever; CV COMPARISON: January 08 TECHNIQUE: Chest radiograph AP single-view FINDINGS: Patchy infiltrates and coarsened interstitial lung markings are demonstrated within the bilateral mid to lower lung zones in keeping with pneumonia. This is superimposed on chronic pulmonary hyperinflation. The heart size is normal. No conspicuous pleural fluid collections identified. There is no pneumothorax or free air beneath the diaphragm. IMPRESSION: Multifocal bilateral pulmonary opacities/infiltrates in keeping with pneumonia. This may be associated with nonspecific viral and atypical organisms Radiographic features of emphysematous COPD are superimposed upon the above findings. THIS IS AN ELECTRONICALLY VERIFIED FINAL REPORT 04/02/2025 4:50 PM - Electronically signed by Kam Prieto MD Dictated By: Kam Prieto MD Signed By: 04/02/25 1650 DD/ 12 TD/TT: 04/02/251613 Internal Sales: Patient: Leslie Reza MR#: [id number] : 1960 Acct:[id number] Age/Sex: 64 / F ADM Date: 04/02/25 Loc: [place] 1109-[address]: Sherine Mary D.O. Ordering Physician: Sherine Mary DO Date of Service: 04/04/25 Procedure(s): XR chest 2V Accession Number(s): [id number] cc: Sherine Mary DO~ EXAM: CHEST 2 VIEWS HISTORY: pneumoniapneumonia; COMPARISON: April 02, 2025 TECHNIQUE: Frontal and lateral views of the chest were submitted for interpretation. FINDINGS: The cardiomediastinal silhouette is within normal limits. Lungs show perihilar airspace disease, increasing. Visualized bony structures are within normal limits. IMPRESSION: Increasing perihilar airspace disease. Findings may be related to infection or worsening pulmonary edema. THIS IS AN ELECTRONICALLY VERIFIED FINAL REPORT 04/04/2025 10:48 PM - Electronically signed by Akila Green MD Dictated By: Akila Green M.D. Signed By: 04/04/25 2248 DD/ 5 TD/TT: 04/04/25915 Patient: Leslie Reza MR#: [id number] : 1960 Acct:[id number] Age/Sex: 64 / F ADM Date: 04/02/25 Loc: [place] 1109-[address]: Sherine Mary D.O. Ordering Physician: Jose Maria Flynn NP Date of Service: 04/06/25 Procedure(s): XR chest 2V Accession Number(s): [id number] cc: Jose Maria Flynn NP; Sherine Mary DO~ EXAM: XR CHEST 2V HISTORY: PNAPNA; COMPARISON: April 04, 2025 FINDINGS: The trachea is midline. The cardiac silhouette is normal in size. There is an improving bibasilar infiltrate, larger on left without effusion. The bony thorax is unremarkable. IMPRESSION: Improving bibasilar pneumonia. THIS IS AN ELECTRONICALLY VERIFIED FINAL REPORT 04/06/2025 11:35 AM - Electronically signed by Trang Owens MD Dictated By: Trang Owens M.D. Signed By: 04/06/25 1135 DD/ 0833 TD/TT: 04/06/25 0904 Internal Sales: CT scan - pelvis: Radiologist's impression: Patient: Leslie Reza MR#: [id number] : 1960 Acct:[id number] Age/Sex: 64 / F ADM Date: 04/02/25 Loc: [place] 1109-[address]: Sherine Mary D.O. Ordering Physician: Jose Maria Flynn NP Date of Service: 04/06/25 Procedure(s): CT abdomen pelvis wo/w con Accession Number(s): [id number] cc: Aislinn Evans; Jose Maria Flynn NP; Sherine Mary DO~ EXAM: CT ABDOMEN PELVIS WO/W CON HISTORY: diarrhea, ; COMPARISON: CT abdomen and pelvis 02/14/2023 TECHNIQUE: Multiple CT axial images of the abdomen and pelvis were obtained without IV contrast. Coronal and sagittal images were reconstructed. Dose reduction techniques included Automated Exposure Control (AEC) and adjustment of mA and kV. FINDINGS: The patient has anasarca with generalized edema. This is manifested as increased density in the subcutaneous fat and the intra-abdominal fat. This has increased since prior exam. This is associated with pleural effusions, trace pericardial effusion, and trace volume ascites. Small bilateral pleural effusions are present. This is associated with atelectasis or pneumonia in the lower lobes. Cardiomegaly is present. Atherosclerotic calcification is present in the coronary arteries. There are calcified granulomata in the liver and spleen. Otherwise the liver is normal in size and configuration. The gallbladder has no edema around it. The spleen is normal in size and shape. Probable normal liver and pancreas. No abnormal calcifications are present in the kidneys, ureters, or urinary bladder. The kidneys have normal size and shape. There is no hydronephrosis or significant perirenal edema. The bladder has normal distention. It has no wall thickening or perivesical edema. The bowel is not dilated. There is no wall thickening in the bowel or edema around the bowel. Mild degenerative disc disease at L5-S1. IMPRESSION: 1. Increased anasarca 2. Pleural effusions with basilar atelectasis or pneumonia 3. Cardiomegaly with CAD THIS IS AN ELECTRONICALLY VERIFIED FINAL REPORT 04/06/2025 2:21 PM - Electronically signed by Bryn Naranjo MD Progress Note: A&P Assessment and Plan (1) Pneumonia of both lower lobes: Assessment and Plan: D/C Zosyn Start Levaquin 500mg IV daily Qualifiers: Pneumonia type: due to unspecified organism Qualified Code(s): J18.9 - Pneumonia, unspecified organism (2) COPD exacerbation: Assessment and Plan: Duoneb QID Pulmicort BID (3) Stage 4 malignant neoplasm of lung: Assessment and Plan: Oncology follow up on discharge Qualifiers: Laterality: unspecified laterality Qualified Code(s): C34.90 - Malignant neoplasm of unspecified part of unspecified bronchus or lung (4) Anasarca: Assessment and Plan: Lasix 20mg po BID (5) Cocaine use: Assessment and Plan: Advise against use (6) Tobacco dependence with current use: Assessment and Plan: Stable (7) GERD without esophagitis: Assessment and Plan: Protonix 20mg po daily (8) Acute on chronic respiratory failure with hypoxia and hypercapnia: Assessment and Plan: Levaquin 500mg IV daily Duoneb QID Pulmicort BID (9) Diarrhea: Assessment and Plan: CT abdomen C diff Plan Admit Scheduled Nebs F/U oncology outpatient Fall Risk Details Vee Fall Scale Risk Level: Moderate Fall Risk Current Medications: Current Medications Acetaminophen (Acetaminophen 325 Mg Tablet) 650 mg PO Q6H PRN PRN Reason: Fever OF 100.5 OR GREATER Last Admin: 04/06/25 05:58 Dose: 650 mg Albuterol Sulfate (Ipratropium/Albuterol Sulfate 3 Ml Ampul.Neb) 3 ml INH RQID [facility] Last Admin: 04/06/25 07:27 Dose: 3 ml Budesonide (Budesonide 0.5 Mg/2 Ml Ampul.Neb) 0.5 mg INH RBID [facility] Last Admin: 04/06/25 07:27 Dose: 0.5 mg Docusate Sodium (Docusate Sodium 100 Mg Capsule) 100 mg PO DAILY PRN PRN Reason: Constipation Enoxaparin Sodium (Enoxaparin Sodium 40 Mg/0.4 Ml Syringe) 40 mg SUBQ DAILY [facility] Last Admin: 04/06/25 09:26 Dose: 40 mg Levofloxacin/Dextrose (Levofloxacin/D5w 500 Mg/100 Ml) 500 mg in 100 mls @ 50 mls/hr IV Q24H [facility] Ondansetron HCl (Ondansetron Hcl/Pf 4 Mg/2 Ml Vial) 4 mg INJ Q6H PRN PRN Reason: Nausea And Vomiting Last Admin: 04/03/25 19:34 Dose: 4 mg Pantoprazole Sodium (Pantoprazole Sodium 40 Mg Tablet.Dr) 40 mg PO DAILY [facility] Last Admin: 04/06/25 09:26 Dose: 40 mg Time Spent With Patient Time: Total time spent is greater than 50% in coordination of care (as documented) at patient's floor/unit and/or counseling patient: Time with patient: 25 - 35 minutes
[2025-04-06] MEDS: PIPERACILLIN/TAZOBACTAM 3.375 3.375 GM in 0.9 % SODIUM CHLORIDE MB+ 100 ML IV SCH (11:48)
[2025-04-06] MEDS: LEVOFLOXACIN/D5W 750 MG/150 ML 750 MG/150 ML PIGGYBACK IV SCH (15:05)
[2025-04-06] MEDS: FUROSEMIDE 20 MG TABLET PO SCH (17:03)
[2025-04-07 08:01] VITALS: BP 162/93; PULSE 78; RESP 20; TEMP 97.9
--- NOTE | 2025-04-07 09:11 | Discharge Summary ---
DS: Providers Provider Date of admission: 04/02/25 18:33 Primary care physician: Aislinn Evans DS: Diagnosis Discharge Diagnosis (1) Pneumonia of both lower lobes: Qualifiers: Pneumonia type: due to unspecified organism Qualified Code(s): J18.9 - Pneumonia, unspecified organism (2) COPD exacerbation: (3) Stage 4 malignant neoplasm of lung: Qualifiers: Laterality: unspecified laterality Qualified Code(s): C34.90 - Malignant neoplasm of unspecified part of unspecified bronchus or lung (4) Anasarca: (5) Cocaine use: (6) Tobacco dependence with current use: (7) GERD without esophagitis: (8) Acute on chronic respiratory failure with hypoxia and hypercapnia: (9) Diarrhea: DS: Summary Hospital Course Hospital Course: Ms. Reza was admitted on 04/03/25 with a complaint of SOB. She is currently being followed by oncology for stage 4 lung cancer. She was initially started on zithromax and rocephin on admit and later changed to zosyn due to increased WBC to 26. Leukocytosis resolved throughout her stay. She did receive steriod taper, with nebulizers. Blood cultures were negative sputum did grow serratia marcenes sensitive to levaquin. Antibiotics were changed to culture report. She did experience diarrhea during her stay prompting CT abdomen which showed anasarca and pneumonia. Patient was started on lasix for anasarca treatment with levaquin for PNA coverage. Patient was discharged on 04/07/25 to follow up with oncology and complete course of abx. Status at Discharge Functional status at discharge: uses cane/walker Overall status at discharge: patient is progressing back to baseline Time Spent with Patient Time attestation: Total time spent providing and/or coordinating discharge services: 35min Time spent: greater than 30 minutes Exam Constitutional: abnormal general appearance (disheveled), (chronically ill) and (frail appearing), no apparent distress, abnormal body habitus (cachectic), (thin) and (underweight), no limitations and alert Vital Signs - 24 hr 04/06/25 11:21 04/06/25 11:55 04/06/25 16:00 Temperature 98.2 F 98.6 F Pulse Rate [Bilate ral] 72 92 H Respiratory Rate 19 20 Blood Pressure [Ri ght Arm] 134/88 142/81 Pulse Oximetry 96 95 93 L Oxygen Delivery Me thod Nasal Cannula Nasal Cannula Oxygen Flow Rate 4 4 Fraction of Inspir ed Oxygen 04/06/25 19:19 04/06/25 20:29 04/06/25 20:29 Temperature 98.6 F Pulse Rate [Bilate ral] 89 Respiratory Rate 21 Blood Pressure [Ri ght Arm] 146/95 Pulse Oximetry 96 92 L 92 L Oxygen Delivery Me thod Nasal Cannula Nasal Cannula Oxygen Flow Rate 4 Fraction of Inspir ed Oxygen 36 04/06/25 23:28 04/07/25 03:36 04/07/25 08:00 Temperature 98.4 F 98.5 F 97.9 F Pulse Rate [Bilate ral] 88 83 78 Respiratory Rate 19 22 20 Blood Pressure [Ri ght Arm] 135/84 151/94 162/93 Pulse Oximetry 100 100 93 L Oxygen Delivery Me thod Nasal Cannula Nasal Cannula Nasal Cannula Oxygen Flow Rate 4 Fraction of Inspir ed Oxygen 04/07/25 08:28 Temperature Pulse Rate [Bilate ral] Respiratory Rate Blood Pressure [Ri t Arm] Pulse Oximetry 91 L Oxygen Delivery Me thod Oxygen Flow Rate Fraction of Inspir ed Oxygen HENMT: normocephalic, head/scalp atraumatic, hearing grossly abnormal, external ears normal, EACs normal, TMs abnormal, nasal mucous membranes normal, external nose normal, oral mucous membranes abnormal, oropharynx normal, dentition abnormal and gingiva normal Eyes: PERRL, EOMs intact bilaterally, conjunctivae normal, no scleral icterus, papilledema noted, normal visual blackburn by confrontation, alignment normal, periorbital findings normal and no nystagmus Neck/C-Spine: trachea midline, cervical spine nontender, abnormal cervical ROM noted, supple, no meningeal signs, thyroid normal and no carotid bruits Lymph: no lymphadenopathy noted and no lymphedema noted Chest: inspection of chest normal, palpation of chest normal, inspection of breast(s) abnormal and palpation of breast(s) abnormal Respiratory: breath sounds equal bilaterally (rhonchi noted bilaterally in all blackburn), normal respiratory effort, clear to auscultation bilaterally, no wheezes, no rales, no retractions and no use of accessory muscles Cardiovascular: normal heart rate noted, regular rhythm noted, no gallop, no rub, no murmur, no JVD, no clicks, peripheral pulses 2+ throughout, no bruits noted and no additional abnormal heart sounds Gastrointestinal: abdomen normal to inspection, abdomen soft to palpation, nontender to palpation, nontender to percussion, nondistended, normoactive bowel sounds, hepatosplenomegaly noted, no masses, no pulsatile mass, no ascites and no hernia Genitourinary: no CVA tenderness and bladder normal to palpation Back/Pelvis: spine normal to inspection, no thoracic spine tenderness, no lumbar spine tenderness, thoracic spine ROM normal, lumbar spine ROM normal, no paraspinal muscle tenderness noted and straight leg raise negative bilaterally Extremities: normal to palpation, no tenderness, full ROM, no joint enlargement and deformity noted Neurology: informatica architect II-XII intact, no movement abnormality noted, no focal motor deficit noted, sensory deficit noted, deep tendon reflexes 2+ bilaterally, gait abnormality noted, speech normal, coordination normal, no pronator drift noted, no fasciculations noted and GCS normal Psychiatry: Mental Status Exam documented within this Exam's Psych section mental status grossly normal, oriented x3, thought process normal, cooperative, affect normal, psychomotor activity normal and memory normal Feel stressed/tense/nervous/anxious/difficulty sleeping: very much Life stressors: other Life stressor details: health Skin: skin color abnormal Reports (pale), no rash, no lesions, no ecchymosis noted, no wounds, no lacerations, skin turgor abnormal, no jaundice, no petechiae, no mottling, nails abnormality noted and no alopecia Discharge Plan Discharge Disposition: Home, Self-Care Condition: Stable Discharge Medications: New furosemide 20 mg Tablet 20 mg PO BIDWM Qty: 30 0RF levofloxacin 750 mg tablet 750 mg PO DAILY Qty: 7 0RF Continued benzonatate 100 mg Capsule 200 mg PO Q8H 5 Days Qty: 30 0RF budesonide-formoterol [Symbicort] 80-4.5 mcg/actuation Hfa Aerosol Inhaler 2 puff inhalation BID 30 Days Qty: 1 0RF albuterol sulfate 2.5 mg /3 mL (0.083 %) solution for nebulization 2.5 mg inhalation Q4H 30 Days Qty: 150 0RF Rx Instructions: while awake pantoprazole 20 mg tablet,delayed release (DR/EC) 20 mg PO DAILY 30 Days Qty: 30 0RF albuterol sulfate 90 mcg/actuation HFA aerosol inhaler 1 puff INHALATION Q4H PRN (Reason: shortness of breath or wheezing) 30 Days Qty: 2 0RF Discharge Orders: Discharge Order (Routine); Ordered 04/07/25 Ordered By: Jose Maria Flynn Activity: increase activity as tolerated Diet: advance to your usual diet Interventions: Discharge Assessment Last Done: 04/07/25 09:35 MED/SURG & ICU Observation Charge Sheet Last Done: 04/07/25 09:36 Patient Instructions: Community Acquired Pneumonia (DC), Edema (DC) Activity Restrictions/Additional Instructions: RESUME HOME MEDICATIONS START NEW MEDICATIONS DIRECTED FOLLOW-UP WITH PRIMARY CARE AND ONCOLOGIST WEIGH DAILY AND KEEP A LOG-5 POUND WEIGHT GAIN NOTIFY PRIMARY CARE REPORT ANY INCREASE IN SWELLING, WEIGHT GAIN, SHORTNESS OF BREATH Forms: Portal/Health Info Access Inst Follow-Ups: Aislinn Evans [Primary Care Provider, Medical] Discharge Date/Time: 04/07/25 10:27
--- NOTE | 2025-04-16 10:28 | Emergency Department Note ---
HPI - General Adult General Chief complaint: SOB -Shortness of Breath Stated complaint: SOB Time Seen by Provider: 04/02/25 16:21 Source: patient Mode of arrival: ambulance Limitations: no limitations History of Present Illness HPI narrative: Patient is a 64-year-old black female who states she has lung cancers and complains shortness of breath that started this morning. She is on 3 L home O2 Onset (ago): hour(s) Location: Reports chest Radiation: Reports non-radiation Relieving factors: Reports none Exacerbating factors: Reports none (But states she has lung cancer) Related Data Previous Rx's Medication Instructions Recorded albuterol sulfate 2.5 mg/3 mL 2.5 mg (3 mL) inhalation Q4H COPD 05/18/24 (0.083 %) solution for nebulization 30 days #150 mL albuterol sulfate 90 mcg/actuation 1 puff inhalation Q 4H PRN 05/18/24 aerosol inhaler shortness of breath or wheez ing 30 days #2 grams benzonatate 100 mg capsule 200 mg (2 x 100 mg) PO Q8H COUGH 5 05/18/24 days #30 caps budesonide-formoterol HFA 80 2 puff 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 30 days 05/18/24 mcg-4.5 mcg/actuation aerosol #1 g inhaler (Symbicort) pantoprazole 20 mg tablet,delayed 20 mg PO DAILY GERD 30 days #30 05/18/24 release tabs furosemide 20 mg tablet 20 mg PO BIDWM #30 tabs 05 0 levofloxacin 750 mg tablet 750 mg PO DAILY PNA #7 tabs 04/07/25 Allergies Allergy/AdvReac Type Severity Reaction Status Date / Time Penicillins Allergy Intermediate Verified 04/02/25 16:12 CRAB Allergy Uncoded 04/02/25 16:12 OYSTERS Allergy Uncoded 04/02/25 16:12 SODA Allergy Uncoded 04/02/25 16:12 Review of Systems Status of ROS 10 or more systems reviewed and unremark able except as noted in history and below Constitutional Reports: fever Eyes Denies: change in vision Ears, nose, mouth, and throat Denies: throat pain Cardiovascular Denies: chest pain Respiratory Reports: shortness of breath, cough and wheezing Gastrointestinal Denies: abdominal pain or difficulty swallowing Genitourinary Denies: painful urination Musculoskeletal Denies: back pain Integumentary/Breast Denies: rash Neurological Denies: headache Endocrine Denies: excessive urination Hematologic/Lymphatic Denies: easy bruising Allergic/Immunologic Denies: hives [facility] Medical History (Updated 04/15/25 @ 00:00 by ) Acute on chronic respiratory failure with hypoxia and hypercapnia COPD exacerbation Stage 4 malignant neoplasm of lung On home oxygen therapy Lung cancer Asthma COPD (chronic obstructive pulmonary disease) Social History Smoking status: current every day smoker What tobacco products do you use: cigarettes Packs per day: 0.5 Non-prescribed substance use: crack/cocaine Non-prescribed substance use details: last smoked Sunday Problems where you live: no known problems Highest level of school completed/degree received: high school Little interest or pleasure in doing things: not at all Feeling down, depressed, or hopeless: not at all Feel stressed/tense/nervous/anxious/difficulty sleeping: very much Life stressors: other Life stressor details: health Gender Identity: female Exam Constitutional: Vital Signs - 24 hr 04/02/25 15:21 04/02/25 15:48 Temperature 103.0 F H Pulse Rate 121 H Respiratory Rate 27 H Blood Pressure 138/79 Pulse Oximetry 88 L 91 L Oxygen Delivery Me thod Nasal Cannula Oxygen Flow Rate 3 Cachectic appearing Eyes: PERRL and EOMs intact bilaterally Neck/C-Spine: visual inspection normal Chest: inspection of chest normal Respiratory: wheezing noted and rales noted Wheezing and Rales bilaterally Cardiovascular: heart rate abnormal Tachycardic Gastrointestinal: abdomen normal to inspection Genitourinary: no CVA tenderness Back/Pelvis: spine normal to inspection Extremities: normal to inspection Psychiatry: mental status grossly normal Skin: skin color normal Course Course Hospital Course: Patient seen and evaluated and diagnosed with bilateral pneumonia on top of stage IV lung cancer. We will admit to observation Vital Signs Vital signs: Vital Signs Temperature 103.0 F H 04/02/25 15:21 Pulse Rate 121 H 04/02/25 15:21 Respiratory Rate 27 H 04/02/25 15:21 Blood Pressure 138/79 04/02/25 15:21 Pulse Oximetry 88 L 04/02/25 15:21 Oxygen Delivery Method Nasal Cannula 04/02/25 15:21 Oxygen Flow Rate 3 04/02/25 15:21 Temperature 97.9 F 04/07/25 08:00 Pulse Rate 78 04/07/25 08:00 Respiratory Rate 20 04/07/25 08:00 Blood Pressure 162/93 04/07/25 08:00 Pulse Oximetry 91 L 04/07/25 08:28 Oxygen Delivery Method Nasal Cannula 04/07/25 08:00 Oxygen Flow Rate 4 04/07/25 08:00 Fraction of Inspired Oxygen 36 04/06/25 20:29 Medical Decision Making MDM Narrative Medical decision making narrative: Patient needs admitting given history of stage IV lung cancer and now has bilateral pneumonia Differential Diagnosis Differential Diagnosis: COPD exacerbation versus pneumonia versus lung cancer Lab Data Labs: Lab Results 04/02/25 04/02/25 Range/Units 15:40 15:45 WBC 18.7 H (4.3-9.3) K/uL RBC 5.8 H (4.00-5.50) M/uL Hgb 17.3 H (12.5-15.8) gm/dL Hct 54.4 H (35.9-46.7) % MCV 94.2 H (81.0-93.7) fl MCH 30.0 (27.6-32.2) pg MCHC 31.8 L (33.1-35.3) g/dl RDW 16.1 H (11.4-14.2) % Plt Count 187 (152-353) K/uL MPV 9.7 (6.9-10.8) fl Gran % 89.3 H (47.8-71.3) % Lymph % (Auto) 1.9 L (20.0-43.0) % [place] % (Auto) 8.4 (3.6-9.8) % Eos % (Auto) 0.1 L (0.4-2.8) % Baso % (Auto) 0.3 (0.1-0.85) Lymph # (Auto) 0.3 L (1.1-3.1) [place] # (Auto) 1.6 (1.1-3.1) Eos # (Auto) 0.0 (0.0-0.2) Baso # (Auto) 0.1 (0.0-0.1) Absolute Gran (auto) 16.7 H (2.3-6.0) Sodium 141 (136-145) mmol/L Potassium 3.3 L (3.6-5.2) mmol/L Chloride 100.0 (98-107) mmol/L Carbon Dioxide 39 H (21-32) mmol/L Anion Gap 2.0 L (4-14) mEq/L BUN 12 (7-18) mg/dL Creatinine 0.7 (0.6-1.3) mg/dL Estimated GFR 95.3 (>59.9) Glucose 104 (70-110) mg/dL Lactic Acid 1.4 (0.27-1.43) mmol/L Calcium 9.0 (8.5-10.1) mg/dL Total Bilirubin 0.67 (0.0-1.0) mg/dL AST 19 (15-37) U/L ALT 22 L (30-65) U/L Alkaline Phosphatase 75 (50-136) U/L Total Protein 7.3 (6.4-8.2) g/dL Albumin 3.0 L (3.4-5.0) g/dL Urine Color Yellow (STRAW/YELL.) Urine Appearance Clear (CLEAR) Ur Specific [place] 1.010 (1.001-1.035) Urine Protein Negative (NEGATIVE) Urine Glucose (UA) Normal (NORMAL) Urine Ketones Negative (NEGATIVE) Urine Occult Blood Negative (NEG - TRACE) Urine Nitrite Negative (NEGATIVE) Urine Bilirubin Negative (NEGATIVE) Urine Urobilinogen Normal (NORMAL) Ur Leukocyte Esterase Negative (NEGATIVE) Fluid pH 7.0 (5 - 9) Urine Opiates Screen Neg. (NEGATIVE) Urine Methadone Screen Neg. (NEGATIVE) Barbiturate Screen Neg. (NEGATIVE) Ur Phencyclidine Scrn Neg. (NEGATIVE) Amphetamines Screen Neg. (NEGATIVE) U Benzodiazepines Scrn Neg. (NEGATIVE) Urine Cocaine Screen Pos. (NEGATIVE) U Marijuana (THC) Screen Pos. (NEGATIVE) COVID-19 (LYDIA) Not detected (Not Detectd) Influenza Type A Ag Negative (Negative) Influenza Type B Ag Negative (Negative) Respiratory Virus Ag Negative (Negative) Streptococcus Screen Negative (Negative) Discharge Plan Discharge Patient Disposition: Admitted As Observation Condition: Stable Clinical Impression: Cocaine use, Tobacco dependence with current use, Pneumonia, Hypoxia, Lung cancer Interventions: ED Discharge Assessment Last Done: 04/02/25 19:10 ED Discharge Vital Sign Last Done: 04/02/25 19:05 Emergency Department Charge Sheet Last Done: 04/02/25 19:23 Time of Disposition: 18:03 Discharge Date/Time: 04/02/25 19:10
== END 2025-04-07 10:27 | disposition home or self-care (01) | DRG 193 ==
LOC: MS 15:21 → ED 15:21 → OBSVTOIN 18:33 → MS 19:10
PROVIDERS: ADMIT Family Medicine; ATTEND Family Medicine
DX: J44.0 Chronic obstructive pulmonary disease with (acute) lower respiratory infection; F14.90 Cocaine use, unspecified, uncomplicated; F17.210 Nicotine dependence, cigarettes, uncomplicated; R19.7 Diarrhea, unspecified; R60.1 Generalized edema; Z79.899 Other long term (current) drug therapy; J18.9 Pneumonia, unspecified organism; J96.22 Acute and chronic respiratory failure with hypercapnia; J44.1 Chronic obstructive pulmonary disease with (acute) exacerbation; C34.90 Malignant neoplasm of unspecified part of unspecified bronchus or lung; J96.21 Acute and chronic respiratory failure with hypoxia; K21.9 Gastro-esophageal reflux disease without esophagitis